=== PATIENT | female | born 1985 | race Asian ===

== ENCOUNTER 2018-12-21 09:27 | Inpatient (IN) | payer OTHER ==
[~2018-12-21] VITALS: Ht 162.6 cm; Wt 62.7 kg
--- NOTE | 2018-12-21 10:00 | NUR ---
PT PRESENTS TO ED WITH C/O R FLANK PAIN SINCE WEDNESDAY AFTER POSSIBLY "WORKING OUT TOO HARD AT HOME" PT DENIES URINARY SYMPTOMS. INST TO PROVIDE URINE SAMPLE SOON POSSIBLE. PT AAOX4 GOWN PROVIDED NO DISTRESS. AWAITING MD MELCHOR AND ORDERS. WILL MONITOR.
--- NOTE | 2018-12-21 10:20 | NUR ---
PT MEDICATED PER MD ORDERS SEE EMAR
[2018-12-21 10:28] LABS: CALCIUM 8.4 mg/dL (8.5-10.1); CARBON DIOXIDE 24.9 mmol/L (21-32); CREATININE SERUM 1.6 mg/dL (0.6-1.0); POTASSIUM SERUM 4.1 mmol/L (3.5-5.1)
--- NOTE | 2018-12-21 10:30 | NUR ---
PTS FAMILY AT BEDSIDE POC AND TREATMENT DISCUSSED WITH PT AND FAMILY MEMBER VERBALIZED UNDERSTANDING NO FURTHER ORDERS AT THIS TIME. WILL MONITOR
[2018-12-21 10:32] LABS: BILIRUBIN TOTAL 2.96 mg/dL (0.20-1.00); TOTAL PROTEIN, SERUM 7.2 g/dL (6.4-8.2)
[2018-12-21 10:36] LABS: PLATELET COUNT 175 x10^3mcL (130-400); RED CELL DISTRIBUTION WIDTH 13.1 % (11.5-14.5)
[2018-12-21 10:53] LABS: ALBUMIN 2.8 g/dL (3.4-5.0)
[2018-12-21 11:38] LABS: BAND NEUTROPHIL 1 % (0-10); BASOPHIL 0 % (0-2); MONOCYTE 5 % (0-7); SEGMENTED NEUTROPHILS 89 % (37-75)
[2018-12-21 11:41] LABS: rbc morphology (normal/abnorm) NORMAL (NORMAL)
[2018-12-21 11:56] LABS: PLATELET MORPHOLOGY PLATELETS INCREASED
--- NOTE | 2018-12-21 12:00 | NUR ---
IV ANTIBIOTIC INFUSION STARTED PT IN NO DISTRESS LYING IN BED COMFORTABLY WILL CONTINUE TO MONITOR
--- NOTE | 2018-12-21 12:10 | NUR ---
PT TO CT VIA [facility]
--- NOTE | 2018-12-21 13:07 | NUR ---
REPORT GIVEN TO GISSELLE RODRIGUEZ RESUMING CARE OF PT AT THIS TIME
--- NOTE | 2018-12-21 13:11 | NUR ---
[facility] () PROVIDED EMERGENCY CONTACT INFO: [phone]
--- NOTE | 2018-12-21 13:19 | NUR ---
PT LAYING VERY COMFORTABLY IN GURNEY, RESP E/U, DENIES ANY PAIN. CALL LIGHT IN REACH.
--- NOTE | 2018-12-21 14:28 | NUR ---
PT LAYING COMFORTABLY IN BED, LOOKING AT HER PHONE. BOYFRIEND AT BEDSIDE. RESP E/U, NAD NOTED.
--- NOTE | 2018-12-21 15:37 | NUR ---
REPORT CALLED TO JUDY ESPINOSA TO ASSUME CARE FOR PT.
--- NOTE | 2018-12-21 15:50 | NUR ---
RECEIVED PT FROM ED VIA [facility], CAME IN DUE TO FEVER, RIGHT FLANK PAIN AND VOMITING SINCE WEDNESDAY. AAOX4. DENIES HEADACHE/DIZZINESS. ABLE TO FOLLOW COMMANDS. NO SOB NOTED, LUNG SOUNDS CTA. DENIES CHEST PAIN/PRESSURE. DENIES ABDOMINAL PAIN/NAUSEA/VOMITING AT THIS TIME. ABDOMEN IS SOFT. BOWEL SOUNDS ACTIVE. DENIES FLANK PAIN/DYSURIA. IV SITE PATENT AND INTACT. SIDE RAILS UPX2. CALL LIGHT ON REACH. PRIMARY NURSE SUPIN AT BEDSIDE FOR CONTINUITY OF CARE
--- NOTE | 2018-12-21 15:50 | NUR ---
PT TRANSPORTED TO MED SURG AT THIS TIME BY MARY BROWN VIA GURNEY. PT IS AWAKE AND ALERT, RESP E/U, VERBALIZED UNDERSTANDING OF PLAN OF CARE PRIOR TO TRANSPORT. NAD NOTED UPON LEAVING ED.
[2018-12-21 15:57] VITALS: BP 94/56
[2018-12-21 16:02] VITALS: Ht 162.6 cm; Wt 62.7 kg
[2018-12-21 16:20] LABS: CHOLESTEROL/HDL RATIO 3.4
[2018-12-21 16:22] LABS: T3 TOTAL 0.42 ng/mL
[2018-12-21 16:39] LABS: FREE T4 1.28 ng/dL (0.76-1.46); FREE THYROXINE INDEX 2.4 ug/dL (1.4-4.5); T4(THYROXINE) 6.2 ug/dL (4.7-13.3)
--- NOTE | 2018-12-21 16:40 | NUR ---
RESTING WITH EYES CLOSED, EASILY TO AROUSE, STATED PAIN TO RLQ IS MILD, DENIES NAUSEA, KEPT NPO, PATIENT MADE AWARE. IVF NS AT 100ML/HR INFUSING WELL TO RAC IV SITE. CALL LIGHT PLACED WITHIN EASY REACH. SIDERAILS UP X2.
--- NOTE | 2018-12-21 16:45 | NUR ---
SEEN BY DOCTOR CATHERINE. KEPT NPO.
--- NOTE | 2018-12-21 19:17 | NUR ---
RECEIVED PT FROM PREVIOUS SHIFT. PT A/OX4. DENIES PAIN. DENIES SOB ON RA. IV PATENT AND INFUSING NS AT 100ML/HR WITH NO S/S OF INFILTRATION. CALL LIGHT WITH REACH, BED IN LOW POSITION. WILL CONTINUE TO MONITOR.
[2018-12-21 19:31] VITALS: BP 105/49
[2018-12-21 21:53] LABS: UA SPECIFIC GRAVITY <=1.005 (1.005-1.035); microscopic required? YES; urine erythrocyte TRACE (NEGATIVE)
[2018-12-22 03:48] VITALS: BP 125/72
--- NOTE | 2018-12-22 05:04 | NUR ---
TEMP 102.6. TYLENOL PROVIDED. PT SHIVERING AND C/O "BODY ACHES". DR CONTRERAS MADE AWARE.
[2018-12-22 06:49] LABS: PLATELET COUNT 177 x10^3mcL (130-400); RED CELL DISTRIBUTION WIDTH 13.3 % (11.5-14.5)
[2018-12-22 07:00] LABS: CALCIUM 7.9 mg/dL (8.5-10.1); CARBON DIOXIDE 19.9 mmol/L (21-32); CREATININE SERUM 1.4 mg/dL (0.6-1.0); MAGNESIUM 1.8 mg/dL (1.8-2.4); POTASSIUM SERUM 3.5 mmol/L (3.5-5.1)
--- NOTE | 2018-12-22 07:04 | NUR ---
RECEIVED PT FROM [facility] PICKER NURSE. PT RESTING IN BED, AOX4, RESP E/U ON RA. DENIES PAIN AT THIS TIME, NO ACUTE DISTRESS NOTED. IV TO RAC W/ NO SIGNS OF INFILTRATION, IVF INFUSING WELL. BED IN LOWEST POSITION AND CALL LIGHT WITHIN REACH, PT NPO. WILL CONTINUE TO MONITOR.
[2018-12-22 08:15] VITALS: BP 100/61
[2018-12-22 10:51] LABS: BAND NEUTROPHIL 14 % (0-10); BASOPHIL 0 % (0-2); MONOCYTE 11 % (0-7); SEGMENTED NEUTROPHILS 70 % (37-75)
[2018-12-22 10:52] LABS: PLATELET MORPHOLOGY GIANT PLATELET SEEN; rbc morphology (normal/abnorm) ABNORMAL (NORMAL); tear drop cell (dacryocyte) 1+
[2018-12-22 12:00] LABS: BILIRUBIN DIRECT 1.02 mg/dL (0.0-0.2); BILIRUBIN TOTAL 1.47 mg/dL (0.20-1.00)
[2018-12-22 12:18] LABS: ALBUMIN 2.2 g/dL (3.4-5.0); TOTAL PROTEIN, SERUM 6.1 g/dL (6.4-8.2)
--- NOTE | 2018-12-22 12:50 | NUR ---
PT RESTING IN BED, AOX4, RESP E/U ON RA. DENIES NAUSEA OR ABD PAIN AT THIS TIME. NO ACUTE DISTRESS NOTED. BED IN LOWEST POSITION AND CALL LIGHT WITHIN REACH. WILL CONTINUE TO MONITOR.
[2018-12-22 16:26] VITALS: BP 119/77
--- NOTE | 2018-12-22 17:55 | NUR ---
PT MEDICATED ORDERED PER EMAR FOR TEMP: 101.3, COOLING MEASURES IMPLEMENTED. DENIES N/V OR ABD PAIN. WILL CONTINUE TO MONITOR.
--- NOTE | 2018-12-22 18:58 | NUR ---
TEMP RECHECKED, T: 100.0. DENIES HEADACHE, NAUSEA OR PAIN AT THIS TIME. AOX4, RESP E/U ON RA. IV W/ NO SIGNS OF INFILTRATION, IVF INFUSING WELL. BED IN LOWEST POSITION AND CALL LIGHT WITHIN REACH. WILL ENDORSE TO ONCOMING NURSE.
[2018-12-22 19:32] VITALS: BP 120/75
--- NOTE | 2018-12-22 19:41 | NUR ---
RECEIVED PT FROM PREVIOUS SHIFT. PT A/OX4. DENIES PAIN. DENIES SOB ON RA. IV PATENT AND INFUSING NS AT 100ML/HR WITH NO S/S OF INFILTRATION. CALL LIGHT WITHIN REACH, BED IN LOW POSITION. FAMILY AT BEDSIDE. WILL CONTINUE TO MONITOR.
--- NOTE | 2018-12-23 01:31 | NUR ---
PT RESTING IN NO ACUTE DISTRESS. RR EVEN AND UNLABORED. CALL LIGHT WITHIN REACH, BED IN LOW POSITION. WILL CONTINUE TO MONITOR.
[2018-12-23 04:25] VITALS: BP 128/77
[2018-12-23 06:09] LABS: PLATELET COUNT 197 x10^3mcL (130-400); RED CELL DISTRIBUTION WIDTH 13.6 % (11.5-14.5)
[2018-12-23 06:11] LABS: CARBON DIOXIDE 22.8 mmol/L (21-32); CHLORIDE SERUM 101 mmol/L (98-107); GFR1 > 60 mL/min; GLUCOSE SERUM 95 mg/dL (74-106); POTASSIUM SERUM 3.4 mmol/L (3.5-5.1); SODIUM SERUM 135 mmol/L (136-145)
--- NOTE | 2018-12-23 08:11 | NUR ---
Recieved report from night nurse at 0720. Performed morning assessment at 0745. Doctor in the room with patient during morning assessment. Doctor informed patient and nurse that she is to remian NPO in preparation for surgery later in the afternoon.
[2018-12-23 08:36] VITALS: BP 120/74
--- NOTE | 2018-12-23 08:36 | NUR ---
Patient signed consent for surgery at 0830. Patient prepped for surgery using chlorhexidine wipes. Lab drawing PT/PTT levels AT 0837.
[2018-12-23 11:07] LABS: BAND NEUTROPHIL 12 % (0-10); BASOPHIL 0 % (0-2); MONOCYTE 10 % (0-7); SEGMENTED NEUTROPHILS 69 % (37-75)
--- NOTE | 2018-12-23 11:14 | NUR ---
Patient returned from surgery. Surgical incisions are dry and open to air. SCDS are placed on the patient and IV fluids resumed. Vital signs within normal ranges.
[2018-12-23 11:15] LABS: rbc morphology (normal/abnorm) ABNORMAL (NORMAL); tear drop cell (dacryocyte) 1+
[2018-12-23 17:24] VITALS: BP 105/71
--- NOTE | 2018-12-23 19:56 | NUR ---
AAO X4 VERBAL DENIES PAIN NO DISTRESS LUNGS CTA, S/P LAP APPENDECTOMY, WITH INTACT DERMABOND DRESSING NO BLEEDING, IVF NS INFUSING @ 100CC/HR IV ACCESS @ RAC PATENT NON INFIL, PT CLAIMED VOIDED X1 POST LAP APPY, SMALL AMT, ON CLEAR LIQ DIET SOPHIA WELL NO NAUSEA OR VOMITING, SHIFT ASSESSMENT DONE, SCD'S ON FOR DVT PROPHYLAXIS, CONT TO MONITOR, CALL LIGHT AT REACH.
[2018-12-23 21:03] VITALS: BP 109/89
--- NOTE | 2018-12-23 23:20 | NUR ---
PT VOIDED FREELY DENIES URINARY DISCOMFORTS, ALSO CLAIMED PASSING GAS, AMBULATING IN THE HALLWAY, CONT TO MONITOR.
--- NOTE | 2018-12-24 04:03 | NUR ---
PT IS AWAKE AT THIS TIME C/O ABDL DISCOMFORTS 5/10 PER ASSESSMENT NO NAUSEA OR VOMITING NORCO PO GIVEN PRN FOR PAIN, ENCOURAGED INCREASE MOBILITY AND DO SOME DEEP BREATHING EXERCISES, CONT TO MONITOR.
[2018-12-24 04:06] VITALS: BP 110/73
--- NOTE | 2018-12-24 06:26 | NUR ---
PT AMBULATING IN THE ROOM DENIES PAIN, NO DISTRESS, INTACT DERMABOND DRESSING TO SURGICAL INCISIONS TO LOWER ABD, CONT TO MONITOR.
[2018-12-24 08:14] VITALS: BP 110/68
--- NOTE | 2018-12-24 09:06 | NUR ---
RECIEVED REPORT FROM NIGHT NURSE AT 0715. PATIENT OBSERVED RESTING COMFORTABLY. ADMINISTERED MORNING MEDICATION FOR PATIENT AT 0830. PATIENT REPORTS WANTING TO GO HOME. LUNG SOUNDS CLEAR TO AUSCULTATION IN ALL LUNG FIELD. CARDIAC SOUNDS PRESENT AND REGULAR RATE.
[2018-12-24 10:19] LABS: BASOPHIL % 0.3 % (0-2); PLATELET COUNT 240 x10^3mcL (130-400); RED CELL DISTRIBUTION WIDTH 13.4 % (11.5-14.5)
[2018-12-24 11:37] LABS: CALCIUM 7.3 mg/dL (8.5-10.1); CARBON DIOXIDE 26.4 mmol/L (21-32); CHLORIDE SERUM 109 mmol/L (98-107); GFR1 > 60 mL/min; GLUCOSE SERUM 91 mg/dL (74-106); POTASSIUM SERUM 3.8 mmol/L (3.5-5.1); SODIUM SERUM 140 mmol/L (136-145)
--- NOTE | 2018-12-24 12:04 | NUR ---
Patient ambulating with parent. So far tolerating clear liquid diet. Will continue to monitor.
--- NOTE | 2018-12-24 16:26 | NUR ---
Assessed temporal temperature and retrieved a high temp of 102.2. Reassessed temperature with LICENSED MORTGAGE LOAN OFFICER via oral route and retrieved temperature of 102.6. Will call nurse practitioner.
[2018-12-24 16:27] VITALS: BP 113/71
--- NOTE | 2018-12-24 16:57 | NUR ---
Spoke with VETERINARY MEDICINE SCIENTIST Alfred about patient's temperature. VETERINARY MEDICINE SCIENTIST advised to give cooling measures and give tyelonal. No additional treatments required at this time per VETERINARY MEDICINE SCIENTIST. Cooling measures are currently in place, but patient refused tyelonol. Will recheck temp in one hour.
--- NOTE | 2018-12-24 18:20 | NUR ---
REASSESSED ORAL TEMPERATURE. PATIENT'S TEMPERATURE 102. PATIENT AGREED TO TAKE TYLENOL. TYLENOL GIVEN TO PATIENT. WILL ENDORSE CARE TO NIGHT NURSE.
--- NOTE | 2018-12-24 19:47 | NUR ---
ASLEEP AROUSABLE TO VERBAL STIMULUS, NOT IN DISTRESS LUNGS CTA, WAS ENDORSED PT HAVING ELEVATED TEMP OF 102, COOLING MEASURES INITIATED AND TYLENOL PO 650 MG GIVEN @ 1800, RECHECKED TEMP IS 100.3, CONTINUE TO PROVIDE COOLING MEASURES, IVF NS INFUSING @ 100CC/HR IV ACCESS @ RAC PATENT NON INFIL, REFUSED SCD'S FOR DVT PROPHYLAXIS, SURGICAL INCISIONS X3 LOWER ABD WITH INTACT DERMABOND DRESSING NO SIGNS OF BLEEDING, DENIES ABDL PAIN, NO BM DAY 2 POST APPY, PASSING GAS AND VOIDING FREELY NO URINARY DISCOMFORTS, CONT ON ATB IV ROCEPHIN ORDERED, NO ADV REACTION, WILL CONT TO MONITOR, CALL LIGHT EASY ACCESS.
[2018-12-24 20:31] VITALS: BP 110/74
--- NOTE | 2018-12-24 20:53 | NUR ---
TEMP RECHECKED 98.7, PT MOVED TO BED A PER REQUEST.
--- NOTE | 2018-12-25 02:08 | NUR ---
PT HAS A TEMP OF 100.4 AND C/O ABDL PAIN 4/10 REPOSITIONED SELF TO COMFORT TORADAL IVP GIVEN PER PRN ORDER, IVF INFUSING WELL, ENCOURAGED FLUIDS INTAKE APPLIED ICE PACKS TO FOREHEAD AND ARMPIT AREA, WILL CONT TO MONITOR.
[2018-12-25 05:21] VITALS: BP 124/87
--- NOTE | 2018-12-25 06:24 | NUR ---
TEMP RECHECKED 99, CONT COOLING MEASURES, PT DENIES PAIN NO DISTRESS, ENCOURAGED AMBULATION, CONT TO MONITOR, WILL ENDORSE TO ONCOMING NURSE FOR F/U CARE.
[2018-12-25 06:35] LABS: CALCIUM 7.1 mg/dL (8.5-10.1); CARBON DIOXIDE 26.6 mmol/L (21-32); CHLORIDE SERUM 107 mmol/L (98-107); CREATININE SERUM 0.8 mg/dL (0.6-1.0); GFR1 > 60 mL/min; GLUCOSE SERUM 84 mg/dL (74-106); POTASSIUM SERUM 3.7 mmol/L (3.5-5.1); SODIUM SERUM 140 mmol/L (136-145)
[2018-12-25 06:59] LABS: BASOPHIL % 0.2 % (0-2); PLATELET COUNT 246 x10^3mcL (130-400); RED CELL DISTRIBUTION WIDTH 13.4 % (11.5-14.5)
[2018-12-25 08:07] VITALS: BP 123/85
--- NOTE | 2018-12-25 08:12 | NUR ---
Recieved report from night nurse at 0700. Patient observed in bed 235A. Patient decided to switch beds herself. Patient was awake, alert, oriented. Patient saw nurse practitioner in the morning. Lung sounds clear to ausculation. Heart sounds regular. Patient reports feeling well and sitting up in bed.
--- NOTE | 2018-12-25 10:19 | NUR ---
IV IN RAC, LEAKING. IV INFUSION DISCONTINUED. WILL NOT RESTART NEW IV THERE IS A DISCHARGE PLAN FOR TODAY.
[2018-12-25 11:01] VITALS: BP 123/85
--- NOTE | 2018-12-25 13:13 | NUR ---
AT 1300 WENT INTO PATIENT'S ROOM AND REMOVED IV INTACT. EDUCATED THE PATIENT ON DISCHARGE INSTRUCTIONS AND FOLLOW UP CARE.
== END 2018-12-25 14:11 | disposition home or self-care (01) | DRG 854 ==
LOC: ED 09:27 → MU 15:12
PROVIDERS: Emergency Medicine; Surgery; ADMIT Family Medicine
PROC: 0DTJ4ZZ Resection of Appendix, Percutaneous Endoscopic Approach (ICD-10-PCS; principal; 2018-12-23 09:00)
DX: A41.9 Sepsis, unspecified organism (principal); K35.80 Unspecified acute appendicitis; N10 Acute pyelonephritis
CPT/HCPCS: 84439; G0378; J0330; J0694; J0696; J1885; J2175; J2250; J2405; J2543; J2704; J2710; J3010; J3490; J7030; J7060; J7120; Q0092; Q9967